=== PATIENT | male | born 1975 | race African-American/Black ===

== ENCOUNTER 2019-03-04 09:10 | Emergency (ER) | payer OTHER ==
[~2019-03-04] VITALS: Ht 175.3 cm; Wt 88.5 kg
[~2019-03-04 09:10] MED LIST: NOHOMEMEDICATIONS; NORCO 7.5-3251 EACH PO
[2019-03-04 09:25] LABS: URINE BILIRUBIN NEGATIVE (Negative); URINE BLOOD NEGATIVE (Negative); URINE CLARITY CLEAR; URINE COLOR YELLOW; URINE GLUCOSE-RANDOM* NEGATIVE (Negative); URINE KETONES NEGATIVE (Negative); URINE LEUKOCYTES-REFLEX NEGATIVE (Negative); URINE NITRITE-REFLEX NEGATIVE (Negative); URINE PROTEIN (DIPSTICK) NEGATIVE (Negative); URINE SPECIFIC GRAVITY >= 1.030 (1.005-1.035); URINE UROBILINOGEN 0.2 E.U./dl (0.2-1.0)
[2019-03-04] MEDS ORDERED: NORFLEX100 MG PO (10:35)
[2019-03-04] MEDS ORDERED: NAPROSYN500 MG PO (10:35)
[2019-03-04 10:55] VITALS: BP 123/72
== END 2019-03-04 10:56 | disposition home or self-care (01) ==
LOC: ER 09:10
PROVIDERS: Emergency Medicine
DX: S29.012A Strain of muscle and tendon of back wall of thorax, initial encounter (principal); G43.909 Migraine, unspecified, not intractable, without status migrainosus; X58.XXXA Exposure to other specified factors, initial encounter; Y92.89 Other specified places as the place of occurrence of the external cause; Y93.89 Activity, other specified; Y99.8 Other external cause status

== ENCOUNTER 2019-07-02 13:49 | Emergency (ER) | payer OTHER ==
[~2019-07-02] VITALS: Ht 175.3 cm; Wt 88.5 kg
[~2019-07-02 13:49] MED LIST changes: +NAPROSYN500 MG PO; +NORFLEX100 MG PO
[2019-07-02 15:32] VITALS: BP 147/83
== END 2019-07-02 15:33 | disposition home or self-care (01) ==
LOC: ER 13:49
DX: S40.212A Abrasion of left shoulder, initial encounter (principal); S50.812A Abrasion of left forearm, initial encounter; V49.88XA Car occupant (driver) (passenger) injured in other specified transport accidents, initial encounter; Y93.89 Activity, other specified; Y92.413 State road as the place of occurrence of the external cause; Y99.9 Unspecified external cause status